=== PATIENT | male | born 1980 | race Caucasian/White ===

== ENCOUNTER 2018-09-20 12:08 | Inpatient (IN) | payer OTHER ==
[2018-09-20 15:00] VITALS: BMI 21.4
--- NOTE | 2018-09-20 16:22 | HP ---
CIWA Score Nausea/Vomitin-Mild Nausea/No Vomiting Muscle Tremors: 2 Anxiety: 3 Agitation: 2 Paroxysmal Sweats: 2 Orientation: 1-Uncertain about Date Tacttile Disturbances: 0-None Auditory Disturbances: 0-None Visual Disturbances: 1-Very Mild Sensitivity Headache: 0-None Present CIWA-Ar Total Score: 12 - Admission Criteria OASAS Guidelines: Admission for Medically Managed Detox: Requires at least one of the followin. CIWA greater than 12 2. Seizures within the past 24 hours 3. Delirium tremens within the past 24 hours 4. Hallucinations within the past 24 hours 5. Acute intervention needed for co occurring medical disorder 6. Acute intervention needed for co occurring psychiatric disorder 7. Severe withdrawal that cannot be handled at a lower level of care (continued vomiting, continued diarrhea, abnormal vital signs) requiring intravenous medication and/or fluids 8. Patient presents the following: CIWA greater than 12 Admission Criteria Met: Admission criteria met Admission ROS [facility] - [facility] Chief Complaint: "alcohol detox " Allergies/Adverse Reactions: Allergies Allergy/AdvReac Type Severity Reaction Status Date / Time No Known Allergies Allergy Verified 09/20/18 16:16 History of Present Illness: 38 male with hx of alcohol dependence is here seeking alcohol detox. Last detox August 2018 at [facility]. longest period of sobriety one month while on medications to curved his drinking. Reports suffered a fall one week ago and was evaluated at [facility]. Denies medical or psychiatric problems. Denies suicidal / homicidal ideation or suicide attempt. Exam Limitations: No Limitations - Ebola screening Have you traveled outside of the country in the last 21 days: No Have you had contact with anyone from an Ebola affected area: No Have you been sick,other than usual withdrawal symptoms: No Do you have a fever: No - Review of Systems Constitutional: Chills, Loss of Appetite EENT: reports: No Symptoms Reported Respiratory: reports: No Symptoms reported Cardiac: reports: No Symptoms Reported GI: reports: Poor Appetite, Poor Fluid Intake : reports: No Symptoms Reported Musculoskeletal: reports: Back Pain Integumentary: reports: No Symptoms Reported Neuro: reports: No Symptoms reported Endocrine: reports: Increased Thirst Hematology: reports: No Symptoms Reported Psychiatric: reports: Orientated x3, Anxious Other Systems: Reviewed and Negative Patient History - Patient Medical History Hx Anemia: No Hx Asthma: No Hx Chronic Obstructive Pulmonary Disease (COPD): No Hx Cancer: No Hx Cardiac Disorders: No Hx Congestive Heart Failure: No Hx Hypertension: No Hx Hypercholesterolemia: No Hx Pacemaker: No HX Cerebrovascular Accident: No Hx Seizures: No Hx Dementia: No Hx Diabetes: No Hx Gastrointestinal Disorders: No Hx Liver Disease: No Hx Genitourinary Disorders: No Hx Sexually Transmitted Disorders: No Hx Renal Disease (ESRD): No Hx Thyroid Disease: No Hx Human Immunodeficiency Virus (HIV): No Hx Hepatitis C: No Hx Depression: No Hx Suicide Attempt: No Hx Bipolar Disorder: No Hx Schizophrenia: No - Patient Surgical History Past Surgical History: No - PPD History Previous Implant?: No Documented Results: Negative w/o proof PPD to be Administered?: Yes - Smoking Cessation Smoking history: Former smoker Have you smoked in the past 12 months: Yes Hx Chewing Tobacco Use: No Initiated information on smoking cessation: Yes 'Breaking Loose' booklet given: 09/20/18 - Substance & Tx. History Hx Alcohol Use: Yes Hx Substance Use: Yes Substance Use Type: Alcohol Hx Substance Use Treatment: Yes ([facility] Aug 2018) - Substances Abused alcohol Route: Oral Frequency: Daily Amount used: one fifth of liquor per day Age of first use: 18 Date of Last Use: 09/20/18 Family Disease History - Family Disease History Family History: Denies Admission Physical Exam BHS - Vital Signs Vital Signs: Vital Signs - 24 hr 09/20/18 14:57 Temperature 98 F Pulse Rate 124 H Respiratory 20 Rate Blood Pressure 123/89 - Physical General Appearance: Yes: Appropriately Dressed, Alcohol on Breath, Thin, Sweating HEENTM: Yes: EOMI, Hearing grossly Normal, Normal ENT Inspection, Normocephalic , Normal Voice, FAWN, Pharynx Normal, Tm's normal Respiratory: Yes: Chest Non-Tender, Lungs Clear, Normal Breath Sounds, No Respiratory Distress, No Accessory Muscle Use Neck: Yes: Within Normal Limits Breast: Yes: Breast Exam Deferred Cardiology: Yes: Regular Rhythm, Tachycardia Abdominal: Yes: Normal Bowel Sounds, Non Tender, Flat, Soft Genitourinary: Yes: Within Normal Limits Back: Yes: Normal Inspection Musculoskeletal: Yes: full range of Motion, Gait Steady, Pelvis Stable Extremities: Yes: Normal Capillary Refill, Normal Inspection, Normal Range of Motion, Non-Tender Neurological: Yes: tower attendant II-XII NML intact, Fully Oriented, Alert, Motor Strength 5/5, Depressed Affect Integumentary: Yes: Normal Color, Warm, Diaphoresis Lymphatic: Yes: Within Normal Limits - Diagnostic (1) Alcohol dependence with withdrawal Current Visit: Yes Status: Acute Qualifiers: Complication of substance-induced condition: uncomplicated Qualified Code(s ): F10.230 - Alcohol dependence with withdrawal, uncomplicated (2) Back pain Current Visit: Yes Status: Acute Qualifiers: Back pain location: low back pain Back pain laterality: left Sciatica presence: without sciatica Cleared for Admission [facility] - Detox or Rehab [facility] Level of Care: Medically Managed Detox Regimen/Protocol: Librium [facility] Breath Alcohol Content Breath Alcohol Content: 0.065 Urine Drug Screen - Results Drug Screen Negative: No Urine Drug Screen Results: BZO-Benzodiazepines Inpatient Rehab Admission - Rehab Decision to Admit Inpatient rehab admission?: No
[2018-09-20] MEDS ORDERED: MENTHOL/PHENOL 1 EACH UD MM PRN (16:25)
[2018-09-20] MEDS ORDERED: hydrOXYzine PAMOATE 25 MG CAPSULE (FP) PO PRN (16:25)
[2018-09-20] MEDS ORDERED: ACETAMINOPHEN 325 MG TABLET (FP) PO PRN ×2 (16:25)
[2018-09-20] MEDS ORDERED: MAGNESIUM HYDROX 2400MG/30ML ORAL SUSPENSION 30 ML CUP PO PRN (16:25)
[2018-09-20] MEDS ORDERED: METHOCARBAMOL 500 MG TABLET PO PRN (16:25)
[2018-09-20] MEDS ORDERED: IBUPROFEN 400 MG TABLET (FP) PO PRN (16:25)
[2018-09-20] MEDS ORDERED: MAGNESIUM CITRATE 300 ML BOTTLE PO PRN (16:25)
[2018-09-20] MEDS ORDERED: BISMUTH SUBSALICYLATE 524 MG/30 ML UD PO PRN (16:25)
[2018-09-20] MEDS ORDERED: ONDANSETRON *ODT* 4 MG TABLET SL PRN (16:25)
[2018-09-20] MEDS ORDERED: chlordiazePOXIDE HCL 25 MG CAPSULE PO PRN (16:25)
[2018-09-20] MEDS: THIAMINE HCL 100 MG TABLET (FP) PO SCH (22:04)
[2018-09-20] MEDS: chlordiazePOXIDE HCL 25 MG CAPSULE PO SCH (22:04)
[2018-09-20] MEDS: MAG HYDROX/AL HYDROX/SIMETH 30 ML UNIT-DOSE CUP PO PRN (22:38)
[2018-09-20] MEDS: MELATONIN 5 MG TABLETS PO PRN (23:10)
[2018-09-20 23:49] LABS: URINE APPEARANCE CLEAR; URINE BILIRUBIN NEGATIVE (<2.0 mg/dL); URINE COLOR YELLOW; URINE GLUCOSE (UA) NEGATIVE (NEGATIVE); URINE KETONE NEGATIVE (NEGATIVE); URINE LEUK ESTERASE NEGATIVE (NEGATIVE); URINE NITRITE NEGATIVE (NEGATIVE); URINE PROTEIN NEGATIVE (NEGATIVE); URINE UROBILINOGEN NEGATIVE mg/dL (0.2-1.0)
[2018-09-21] MEDS: chlordiazePOXIDE HCL 25 MG CAPSULE PO SCH ×4 (05:44→22:04)
[2018-09-21] MEDS: PRENATAL VITAMINS W/ FOLIC ACID TABLET (FP) PO SCH (10:06)
[2018-09-21 10:26] LABS: HEMATOCRIT 28.1 % (35.4-49); MCHC 31.9 g/dl (32.0-35.9); MEAN CELL VOLUME 65.7 fl (80-96); MEAN PLT VOLUME 9.7 fl (7.5-11.1); PLATELET COUNT 202 K/MM3 (134-434); RBC 4.28 M/mm3 (4.00-5.60); WHITE BLOOD COUNT 3.8 K/mm3 (4.0-10.0)
[2018-09-21 10:28] LABS: ALBUMIN 3.2 g/dl (3.4-5.0); ALK PHOS 58 U/L (45-117); ANION GAP 4 MMOL/L (8-16); BILIRUBIN,TOTAL 1.6 mg/dL (0.2-1); BLOOD UREA NITROGEN 13 mg/dL (7-18); CALCIUM 8.2 mg/dL (8.5-10.1); CHLORIDE 108 mmol/L (98-107); CO2 30 mmol/L (21-32); CREATININE 0.9 mg/dL (0.55-1.3); GLUCOSE,RANDOM 71 mg/dL (74-106); SGOT/AST 23 U/L (15-37); SGPT/ALT 42 U/L (13-61); SODIUM 142 mmol/L (136-145); TOT PROT 6.2 g/dl (6.4-8.2)
--- NOTE | 2018-09-21 10:55 | EKG ---
Test Reason : Blood Pressure : / mmHG Vent. Rate : 099 BPM Atrial Rate : 099 BPM P-R Int : 154 ms QRS Dur : 074 ms QT Int : 344 ms P-R-T Axes : 058 060 022 degrees QTc Int : 441 ms NORMAL SINUS RHYTHM NORMAL ECG NO PREVIOUS ECGS AVAILABLE Confirmed by ANDRIY SALEH MD ([id number]) on 09/21/2018 10:54:55 AM Referred By: Confirmed By:ANDRIY SALEH MD
[2018-09-21] MEDS ORDERED: FLU VACCINE QUAD 60 MCG/0.5 ML (MDV 18-19) IM ONE (12:00)
--- NOTE | 2018-09-21 18:37 | PN ---
[facility] CIWA - CIWA Score Nausea/Vomitin-No Nausea/No Vomiting Muscle Tremors: 3 Anxiety: 2 Agitation: 0-Normal Activity Paroxysmal Sweats: 3 Orientation: 0-Oriented Tacttile Disturbances: 2-Mild Itch/Numbness/Burn Auditory Disturbances: 2-Mild Harshness/Frighten Visual Disturbances: 2-Mild Sensitivity Headache: 0-None Present CIWA-Ar Total Score: 14 S Progress Note (SOAP) Subjective: Tremors, Diarrhea, Anxious, Sweating. Objective: PATIENT A & O X 3, OBSERVED AMBULATING ON UNIT. IN NO ACUTE DISTRESS. 09/21/18 18:33 Vital Signs Temperature 97.4 F L 09/21/18 18:30 Pulse Rate 66 09/21/18 18:30 Respiratory Rate 18 09/21/18 18:30 Blood Pressure 96/65 09/21/18 18:30 O2 Sat by Pulse Oximetry (%) Laboratory Tests 09/20/18 09/21/18 09/21/18 23:17 07:00 07:00 WBC 3.8 L RBC 4.28 Hgb 9.0 L Hct 28.1 L MCV 65.7 L MCH 21.0 L MCHC 31.9 L RDW 19.0 H Plt Count 202 MPV 9.7 Sodium 142 Potassium 4.0 Chloride 108 H Carbon Dioxide 30 Anion Gap 4 L BUN 13 Creatinine 0.9 Creat Clearance w eGFR > 60 Random Glucose 71 L Calcium 8.2 L Total Bilirubin 1.6 H AST 23 ALT 42 Alkaline Phosphatase 58 Total Protein 6.2 L Albumin 3.2 L Urine Color Yellow Urine Appearance Clear Urine pH 5.0 Ur Specific [place] 1.011 Urine Protein Negative Urine Glucose (UA) Negative Urine Ketones Negative Urine Blood Negative Urine Nitrite Negative Urine Bilirubin Negative Urine Urobilinogen Negative Ur Leukocyte Esterase Negative RPR Titer 09/21/18 07:00 WBC RBC Hgb Hct MCV MCH MCHC RDW Plt Count MPV Sodium Potassium Chloride Carbon Dioxide Anion Gap BUN Creatinine Creat Clearance w eGFR Random Glucose Calcium Total Bilirubin AST ALT Alkaline Phosphatase Total Protein Albumin Urine Color Urine Appearance Urine pH Ur Specific [place] Urine Protein Urine Glucose (UA) Urine Ketones Urine Blood Urine Nitrite Urine Bilirubin Urine Urobilinogen Ur Leukocyte Esterase RPR Titer Nonreactive LABS NOTED. Assessment: 09/21/18 18:33 WITHDRAWAL SYMPTOMS. ANEMIA (MICROCYTIC). HYPERBILIRUBINEMIA. 09/21/18 18:38 Plan: CONTINUE DETOX. INCREASE DAILY PO FLUID INTAKE. FEOSOL, 325 MG PO TICDM. REPEAT CBC TOMORROW FOR ADMISSION ABNORMALITIES (MICROCYTIC ANEMIA). REPEAT TOTAL BILIRUBIN LEVEL TOMORROW AM FOR ELEVATED ADMISSION LEVEL.
[2018-09-21] MEDS: FERROUS SO4 325 MG TABLET (FP) PO SCH (19:05)
[2018-09-21] MEDS: MELATONIN 5 MG TABLETS PO PRN (22:04)
[2018-09-21] MEDS: THIAMINE HCL 100 MG TABLET (FP) PO SCH (22:04)
[2018-09-22] MEDS: chlordiazePOXIDE HCL 25 MG CAPSULE PO SCH ×3 (05:48→17:54)
[2018-09-22] MEDS: FERROUS SO4 325 MG TABLET (FP) PO SCH ×3 (07:10→17:54)
[2018-09-22 09:56] LABS: BASO % 0.5 % (0-2.0); EOS % 0.9 % (0-4.5); HEMATOCRIT 30.9 % (35.4-49); HEMOGLOBIN 9.6 GM/dL (11.7-16.9); LYMPH % 51.3 % (8-40); MCH 20.5 pg (25.7-33.7); MONO % 6.7 % (3.8-10.2); NEUT % 40.6 % (42.8-82.8); PLATELET COUNT 219 K/MM3 (134-434); RBC 4.68 M/mm3 (4.00-5.60); RDW 19.1 % (11.9-15.9); WHITE BLOOD COUNT 6.1 K/mm3 (4.0-10.0)
[2018-09-22] MEDS: PRENATAL VITAMINS W/ FOLIC ACID TABLET (FP) PO SCH (10:03)
[2018-09-22 12:14] LABS: ANISOCYTOSIS 3+; MACROCYTOSIS 0; PLATELET ESTIMATE NORMAL; TARGET CELLS 1+; TEAR DROP CELLS 1+
--- NOTE | 2018-09-22 15:12 | PN ---
S Progress Note (SOAP) Subjective: Diarrhea, Anxious, Sweating. Objective: PATIENT A & O X 3, OBSERVED AMBULATING ON UNIT. IN NO ACUTE DISTRESS. 09/22/18 15:07 Vital Signs Temperature 96.1 F L 09/22/18 13:46 Pulse Rate 75 09/22/18 13:46 Respiratory Rate 18 09/22/18 13:46 Blood Pressure 108/75 09/22/18 13:46 O2 Sat by Pulse Oximetry (%) Laboratory Tests 09/20/18 09/21/18 09/21/18 23:17 07:00 07:00 WBC 3.8 L RBC 4.28 Hgb 9.0 L Hct 28.1 L MCV 65.7 L MCH 21.0 L MCHC 31.9 L RDW 19.0 H Plt Count 202 MPV 9.7 Absolute Neuts (auto) Neutrophils % Neutrophils % (Manual) Band Neutrophils % Lymphocytes % Lymphocytes % (Manual) Monocytes % Monocytes % (Manual) Eosinophils % Eosinophils % (Manual) Basophils % Basophils % (Manual) Myelocytes % (Man) Promyelocytes % (Man) Blast Cells % (Manual) Nucleated RBC % Metamyelocytes Hypochromia Platelet Estimate Polychromasia Poikilocytosis Anisocytosis Microcytosis Macrocytosis Target Cells Tear Drop Cells Sodium 142 Potassium 4.0 Chloride 108 H Carbon Dioxide 30 Anion Gap 4 L BUN 13 Creatinine 0.9 Creat Clearance w eGFR > 60 Random Glucose 71 L Calcium 8.2 L Total Bilirubin 1.6 H AST 23 ALT 42 Alkaline Phosphatase 58 Total Protein 6.2 L Albumin 3.2 L Urine Color Yellow Urine Appearance Clear Urine pH 5.0 Ur Specific [place] 1.011 Urine Protein Negative Urine Glucose (UA) Negative Urine Ketones Negative Urine Blood Negative Urine Nitrite Negative Urine Bilirubin Negative Urine Urobilinogen Negative Ur Leukocyte Esterase Negative RPR Titer 09/21/18 09/22/18 09/22/18 07:00 07:40 07:40 WBC 6.1 RBC 4.68 Hgb 9.6 L Hct 30.9 L MCV 66.0 L MCH 20.5 L MCHC 31.0 L RDW 19.1 H Plt Count 219 MPV 10.0 Absolute Neuts (auto) 2.5 Neutrophils % 40.6 L Neutrophils % (Manual) 58.6 Band Neutrophils % 0.0 Lymphocytes % 51.3 H Lymphocytes % (Manual) 24.3 Monocytes % 6.7 Monocytes % (Manual) 8 Eosinophils % 0.9 Eosinophils % (Manual) 4.0 Basophils % 0.5 Basophils % (Manual) 1.0 Myelocytes % (Man) 0 Promyelocytes % (Man) 0 Blast Cells % (Manual) 0 Nucleated RBC % 2 H Metamyelocytes 0 Hypochromia 3+ Platelet Estimate Normal Polychromasia 2+ Poikilocytosis 1+ Anisocytosis 3+ Microcytosis 3+ Macrocytosis 0 Target Cells 1+ Tear Drop Cells 1+ Sodium Potassium Chloride Carbon Dioxide Anion Gap BUN Creatinine Creat Clearance w eGFR Random Glucose Calcium Total Bilirubin 1.4 H AST ALT Alkaline Phosphatase Total Protein Albumin Urine Color Urine Appearance Urine pH Ur Specific [place] Urine Protein Urine Glucose (UA) Urine Ketones Urine Blood Urine Nitrite Urine Bilirubin Urine Urobilinogen Ur Leukocyte Esterase RPR Titer Nonreactive LABS NOTED. RESULTS OF REPEAT CBC NOTED. IMPROVEMENT NOTED IN WBC, HCT, AND HGB LEVELS. WBC LEVEL NOW NOTED TO BE WITHIN NORMAL RANGE. RESULT OF REPEAT TOTAL BILIRUBIN LEVEL NOTED - MINOR IMPROVEMENT NOTED. 09/22/18 15:09 Assessment: 09/22/18 15:07 WITHDRAWAL SYMPTOMS. ANEMIA. HYPERBILIRUBINEMIA. 09/22/18 15:11 Plan: CONTINUE DETOX. CONTINUE FEOSOL TIDCM. INCREASE DAILY PO FLUID INTAKE. REPEAT CBC AGAIN TOMORROW AM TO DETERMINE IF ANY FURTHER IMPROVEMENT IN ANEMIA.
[2018-09-22] MEDS ORDERED: LOPERAMIDE HCL 2 MG CAPSULE PO PRN (15:13)
[2018-09-22] MEDS: chlordiazePOXIDE HCL 10 MG CAPSULE PO SCH (22:06)
[2018-09-22] MEDS: THIAMINE HCL 100 MG TABLET (FP) PO SCH (22:06)
[2018-09-22] MEDS: MELATONIN 5 MG TABLETS PO PRN (22:06)
[2018-09-22] MEDS: MAG HYDROX/AL HYDROX/SIMETH 30 ML UNIT-DOSE CUP PO PRN (22:56)
[2018-09-22] MEDS ORDERED: chlordiazePOXIDE HCL 10 MG CAPSULE PO PRN (23:00)
[2018-09-23] MEDS: chlordiazePOXIDE HCL 10 MG CAPSULE PO SCH ×4 (06:04→22:21)
[2018-09-23] MEDS: PRENATAL VITAMINS W/ FOLIC ACID TABLET (FP) PO SCH (10:06)
[2018-09-23] MEDS: FERROUS SO4 325 MG TABLET (FP) PO SCH ×3 (10:06→17:34)
[2018-09-23 11:31] LABS: HEMATOCRIT 30.7 % (35.4-49); HEMOGLOBIN 9.8 GM/dL (11.7-16.9); MCH 21.4 pg (25.7-33.7); MEAN PLT VOLUME 9.7 fl (7.5-11.1); PLATELET COUNT 204 K/MM3 (134-434); RBC 4.58 M/mm3 (4.00-5.60); RDW 19.1 % (11.9-15.9)
[2018-09-23 13:54] LABS: OVALOCYTE 1+; PLATELET ESTIMATE ADEQUATE
[2018-09-23 13:55] LABS: ANISOCYTOSIS 1+
--- NOTE | 2018-09-23 15:47 | PN ---
S Progress Note (SOAP) Subjective: Diarrhea. Objective: PATIENT A & O X 3, OBSERVED AMBULATING ON UNIT. IN NO ACUTE DISTRESS. 09/23/18 15:42 Vital Signs Temperature 98.0 F 09/23/18 14:00 Pulse Rate 95 H 09/23/18 14:00 Respiratory Rate 18 09/23/18 14:00 Blood Pressure 114/75 09/23/18 14:00 O2 Sat by Pulse Oximetry (%) Laboratory Tests 09/20/18 09/21/18 09/21/18 23:17 07:00 07:00 WBC 3.8 L RBC 4.28 Hgb 9.0 L Hct 28.1 L MCV 65.7 L MCH 21.0 L MCHC 31.9 L RDW 19.0 H Plt Count 202 MPV 9.7 Absolute Neuts (auto) Total Counted Neutrophils % Neutrophils % (Manual) Band Neutrophils % Lymphocytes % Lymphocytes % (Manual) Monocytes % Monocytes % (Manual) Eosinophils % Eosinophils % (Manual) Basophils % Basophils % (Manual) Myelocytes % (Man) Promyelocytes % (Man) Blast Cells % (Manual) Nucleated RBC % Metamyelocytes Hypochromia Platelet Estimate Platelet Comment Polychromasia Poikilocytosis Basophilic Stippling Anisocytosis Microcytosis Macrocytosis Target Cells Tear Drop Cells Ovalocytes Sodium 142 Potassium 4.0 Chloride 108 H Carbon Dioxide 30 Anion Gap 4 L BUN 13 Creatinine 0.9 Creat Clearance w eGFR > 60 Random Glucose 71 L Calcium 8.2 L Total Bilirubin 1.6 H AST 23 ALT 42 Alkaline Phosphatase 58 Total Protein 6.2 L Albumin 3.2 L Urine Color Yellow Urine Appearance Clear Urine pH 5.0 Ur Specific [place] 1.011 Urine Protein Negative Urine Glucose (UA) Negative Urine Ketones Negative Urine Blood Negative Urine Nitrite Negative Urine Bilirubin Negative Urine Urobilinogen Negative Ur Leukocyte Esterase Negative RPR Titer 09/21/18 09/22/18 09/22/18 07:00 07:40 07:40 WBC 6.1 RBC 4.68 Hgb 9.6 L Hct 30.9 L MCV 66.0 L MCH 20.5 L MCHC 31.0 L RDW 19.1 H Plt Count 219 MPV 10.0 Absolute Neuts (auto) 2.5 Total Counted Neutrophils % 40.6 L Neutrophils % (Manual) 58.6 Band Neutrophils % 0.0 Lymphocytes % 51.3 H Lymphocytes % (Manual) 24.3 Monocytes % 6.7 Monocytes % (Manual) 8 Eosinophils % 0.9 Eosinophils % (Manual) 4.0 Basophils % 0.5 Basophils % (Manual) 1.0 Myelocytes % (Man) 0 Promyelocytes % (Man) 0 Blast Cells % (Manual) 0 Nucleated RBC % 2 H Metamyelocytes 0 Hypochromia 3+ Platelet Estimate Normal Platelet Comment Polychromasia 2+ Poikilocytosis 1+ Basophilic Stippling Anisocytosis 3+ Microcytosis 3+ Macrocytosis 0 Target Cells 1+ Tear Drop Cells 1+ Ovalocytes Sodium Potassium Chloride Carbon Dioxide Anion Gap BUN Creatinine Creat Clearance w eGFR Random Glucose Calcium Total Bilirubin 1.4 H AST ALT Alkaline Phosphatase Total Protein Albumin Urine Color Urine Appearance Urine pH Ur Specific [place] Urine Protein Urine Glucose (UA) Urine Ketones Urine Blood Urine Nitrite Urine Bilirubin Urine Urobilinogen Ur Leukocyte Esterase RPR Titer Nonreactive 09/23/18 07:50 WBC 5.0 RBC 4.58 Hgb 9.8 L Hct 30.7 L MCV 67.0 L MCH 21.4 L MCHC 32.0 RDW 19.1 H Plt Count 204 MPV 9.7 Absolute Neuts (auto) 2.0 Total Counted 100 Neutrophils % No Result Required. Neutrophils % (Manual) 49.0 Band Neutrophils % Lymphocytes % No Result Required. Lymphocytes % (Manual) 36.0 D Monocytes % Monocytes % (Manual) 5 Eosinophils % Eosinophils % (Manual) 6.0 H Basophils % Basophils % (Manual) 2.0 Myelocytes % (Man) Promyelocytes % (Man) Blast Cells % (Manual) Nucleated RBC % 0 Metamyelocytes Hypochromia 2+ Platelet Estimate Adequate Platelet Comment Giant platelets Polychromasia Poikilocytosis Basophilic Stippling 2+ Anisocytosis 1+ Microcytosis 1+ Macrocytosis Target Cells Tear Drop Cells Ovalocytes 1+ Sodium Potassium Chloride Carbon Dioxide Anion Gap BUN Creatinine Creat Clearance w eGFR Random Glucose Calcium Total Bilirubin AST ALT Alkaline Phosphatase Total Protein Albumin Urine Color Urine Appearance Urine pH Ur Specific [place] Urine Protein Urine Glucose (UA) Urine Ketones Urine Blood Urine Nitrite Urine Bilirubin Urine Urobilinogen Ur Leukocyte Esterase RPR Titer LABS NOTED. Assessment: 09/23/18 15:43 WITHDRAWAL SYMPTOMS. ANEMIA (MICROCYTIC). Plan: CONTINUE DETOX. INCREASE DAILY PO FLUID INTAKE. RESULTS OF REPEAT CBC EXPLAINED TO AND DISCUSSED WITH PATIENT. PATIENT ADVISED TO FOLLOW-UP WITH MANA[facility]ELOP[facility] ([facility], [place]) AFTER DISCHARGE FROM DETOX UNIT FOR GENERAL MEDICAL ASSESSMENT AND FOR FURTHER EVALUATION OF ANEMIA NOTED WHILE ADMITTED FOR DETOX. PATIENT VERBALIZED UNDERSTANDING OF ALL RECOMMENDATIONS. COPIES OF ALL LABS DRAWN WHILE ADMITTED FOR DETOX (INCLUDING ADMISSION AND REPEAT CBC'S) GIVEN TO PATIENT TO TAKE WITH HIM TO HIS MANAGER TRAINING AND DEVELOPMENT AFTER DISCHARGE FROM DETOX UNIT. PRESCRIPTION FOR FEOSOL FOR FOLLOW-UP AFTERCARE SENT TO PATIENT'S PHARMACY ( [facility] [place], [place]). PATIENT SCHEDULED FOR D/C TOMORROW.
[2018-09-23] MEDS: THIAMINE HCL 100 MG TABLET (FP) PO SCH (22:22)
[2018-09-23] MEDS: MELATONIN 5 MG TABLETS PO PRN (22:22)
[2018-09-24] MEDS: FERROUS SO4 325 MG TABLET (FP) PO SCH (09:02)
[2018-09-24 09:55] VITALS: BP 112/77; PULSE 69; TEMP 97.7
[2018-09-24] MEDS: PRENATAL VITAMINS W/ FOLIC ACID TABLET (FP) PO SCH (10:12)
[2018-09-24] MEDS: chlordiazePOXIDE HCL 10 MG CAPSULE PO SCH (10:12)
--- NOTE | 2018-09-24 15:45 | DS ---
[facility] Detox Discharge Summary Admission Date: 09/20/18 Discharge Date: 09/24/18 - History Present History: Alcohol Dependence Additional Comments: 38 years old male admitted on 09/20/18 for alcohol withdrawal stabilization completed detox regimen aftercare [facility] - Physical Exam Results Vital Signs: Vital Signs Temperature 97.7 F 09/24/18 08:45 Pulse Rate 69 09/24/18 08:45 Respiratory Rate 18 09/24/18 08:45 Blood Pressure 112/77 09/24/18 08:45 O2 Sat by Pulse Oximetry (%) Pertinent Admission Physical Exam Findings: alcohol withdrawal sx - Treatment Hospital Course: Detox Protocol Followed, Detoxed Safely, Responded well, Discharged Condition Good, Rehab Referral Accepted Patient has Accepted a Rehab Referral to: [facility] - Medication Discharge Medications: Ambulatory Orders Ferrous Sulfate [Feosol] 325 mg PO BID 14 Days #28 tablet 09/23/18 - Diagnosis (1) Alcohol dependence with withdrawal Status: Acute Qualifiers: Complication of substance-induced condition: uncomplicated Qualified Code(s ): F10.230 - Alcohol dependence with withdrawal, uncomplicated - AMA Did Patient Leave Against Medical Advice: No
== END 2018-09-24 09:10 | disposition home or self-care (01) | DRG 775 ==
LOC: YASAS 12:08 → Y3N 17:12
PROVIDERS: ADMIT Surgery; ATTEND Surgery
PROC: HZ2ZZZZ Detoxification Services for Substance Abuse Treatment (ICD-10-PCS; principal; 2018-09-20)
DX: F10.230 Alcohol dependence with withdrawal, uncomplicated (principal); D50.9 Iron deficiency anemia, unspecified; E80.6 Other disorders of bilirubin metabolism; M54.5 Low back pain
CPT/HCPCS: 36415; 80053; 81003; 82247; 85025; 85027; 86593; 90688; 93005; 93010; G0008; Q0162